=== PATIENT | female | born 1945 | race Caucasian/White ===

== ENCOUNTER 2018-03-06 08:48 | Inpatient (IN) | payer MEDICARE ==
[2018-03-06] MEDS ORDERED: PATIENT OWN MED: PROAIR HFA INH PRN (14:10)
[2018-03-06] MEDS ORDERED: TYVASO INH SCH (14:15)
[2018-03-06] MEDS: HYDROCODONE/APAP 5/325MG TABLET PO PRN (16:05)
[2018-03-06] MEDS: IPRATROPIUM/ALBUTEROL (0.5MG/3MG) NEB INH SCH ×3 (16:34→23:48)
[2018-03-06] MEDS: BREO (FLUTICASONE/VILANTEROL) 100MCG/25MCG INHALER INH SCH (16:35)
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
[2018-03-06] MEDS: TYVASO INH SCH ×2 (19:56→23:00)
[2018-03-06] MEDS: ADEMPAS 2.5 MG PO SCH (20:39)
[2018-03-07] MEDS: IPRATROPIUM/ALBUTEROL (0.5MG/3MG) NEB INH SCH ×6 (04:04→23:51)
[2018-03-07] MEDS: ADEMPAS 2.5 MG PO SCH ×3 (05:59→20:14)
[2018-03-07] MEDS: PANTOPRAZOLE SODIUM 40 MG TABLET PO SCH ×2 (06:00→06:08)
[2018-03-07] MEDS: HYDROCODONE/APAP 5/325MG TABLET PO PRN ×2 (07:57→20:17)
[2018-03-07] MEDS: FERROUS SULFATE 325 MG TAB PO SCH (08:37)
[2018-03-07] MEDS: BREO (FLUTICASONE/VILANTEROL) 100MCG/25MCG INHALER INH SCH (09:48)
[2018-03-07] MEDS: LORATADINE 10 MG TABLET PO SCH (10:04)
[2018-03-07] MEDS: TYVASO INH SCH ×4 (10:04→22:00)
[2018-03-07] MEDS: POTASSIUM CHLORIDE 20 MEQ TABLET PO SCH (10:05)
[2018-03-07] MEDS: DIGOXIN 125 MCG TABLET PO SCH (10:06)
[2018-03-07] MEDS: MAGNESIUM OXIDE 400 MG TABLET PO SCH (10:07)
[2018-03-07] MEDS: FUROSEMIDE 20 MG TABLET PO SCH (10:07)
[2018-03-07] MEDS: LISINOPRIL 20 MG TABLET PO SCH (10:08)
[2018-03-07] MEDS: SIMVASTATIN 10MG TABLET PO SCH (10:10)
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
[2018-03-07] MEDS ORDERED: CALCIUM CARBONATE 500 MG TAB.CHEW PO PRN (10:23)
--- NOTE | 2018-03-07 12:02 | Swing Bed Certification/Recert ---
Initial Certification Due: 03/06/18 14 Day Re-Cert Due: 03/20/18 44 Day Re-Cert Due: 04/19/18 74 Day Re-Cert Due: 05/19/18 CERTIFICATION 3 CERTIFICATION OF PATIENT ADMISSION Required at time of admission. Due: 03/06/18 I certify that SNF services are required to be given on an inpatient basis because of the above named patient's need for care home care on a continuing basis for the condition(s) for which he/she was receiving inpatient hospital services prior to his/her transfer to the SNF. The patient's current needs for skilled care includes: [physical deconditioning due to acute on chronic respiratory failure] Sushila Mathis, N.P. 03/07/18
--- NOTE | 2018-03-07 12:12 | History & Physical ---
History of Present Illness - Date Date of Service for History & Physical: 03/07/18 - History of Present Illness Admitting Diagnosis: hypoxia History of Present Illness: 72 year old female presents with physical deconditioning after being hospitalized for acute on chronic respiratory failure due to COPD. Patient has a history of PE, COPD, HTN, chronic anemia, arthritis, pulmonary hypertension, chronic back pain, and hyperkalemia. The patient was admitted to [facility] for pneumonia and discharged to [facility] 03/06/18. Patient has had several ER visits and admissions for weakness and exertional dyspnea since 02/26/18. Her most recent admission included treatment for pneumonia, with oral steroids, and a pulmonary consult. She did not receive antibiotics at that time per pulmonary, as she had recently completed a course at home and was afebrile. Patient also had CAP in December. [place], uses 3L oxygen via [place] at home, and uses a motorized wheelchair. She also has a history of chronic back pain with radiography done at [facility], which showed degenerative changes. She takes Holbrook and Flexeril at home for pain control. 03/07/18: Patient sitting in chair, in no respiratory distress, appears comfortable. Patient participating in PT/OT, continues on 3L oxygen via NC, as this is her home dose. Patient reports that her pain is being well controlled at this time, denies any shortness of breath, cough, or dyspnea. PCP: Radha Chaudhry: Gio General - Cognitive Patterns Speech: Normal Orientation: Oriented x3, Person, Place, Time - Communication Preferred Language?: Estonian Referral Nurse Required: No Level of Education: [employer] Preferred Method of Learning: Seeing, Doing, Reading Comprehension Ability: No Impairment Able to Read: Yes Able to Write: Yes Select best description of speech pattern: Clear Speech Ability to express ideas and wants: Understood Understanding verbal content: Understands - Psychosocial Well-Being Usual Living Arrangement: Alone - Dental Status Unable to examine: No Broken or loosely fitting full or partial dentures: No No natural teeth or tooth fragment(s) (edentulous): No Abnormal mouth tissue (ulcers, masses, oral lesions, etc.): No Obvious or likely cavity or broken natural teeth: No Inflamed or bleeding gums or loose natural teeth: No Mouth/facial pain, discomfort or difficulty chewing: No - Nutrition Screening Poor oral intake > 1 week: No Unplanned weight loss in specified time frame: No Nutrition Support via tube feedings or parenteral nutrition: No Pressure Ulcer: No Significantly underweight define as BMI <18.5 kg/m2: No Albumin <2.5mg/dL: No Persistent nausea/vomiting/diarrhea >3 days: No Difficulty chewing/swallowing/mouth sores: No Admitting Diagnosis: Yes Nutrition Risk Score: Low Risk Review of Systems Constitutional: Reports: Weakness. Denies: Chills, Fever Respiratory: Reports: Dyspnea. Denies: Cough, Stridor, Wheezes Cardiovascular: Denies: Chest pain Gastrointestinal: Denies: Abdominal pain, Nausea, Vomiting Musculoskeletal: Reports: Back pain Neurological: Reports: Abnormal gait, Weakness Past Medical History - SOCIAL HISTORY Smoking Status: Never smoker Alcohol Use: None - RESPIRATORY Hx Bronchitis: Yes Hx COPD: Yes Hx Dyspnea: Yes Hx Pulmonary Embolism: Yes - NEURO Comment:: States has enlarged heart. - ENDOCRINE Hx Diabetes: No Hx Thyroid Disease: No Comment:: States is not a diabetic - MUSCULOSKELETAL Hx Arthritis: Yes Hx Back Injury: Yes Hx Fibromyalgia: No Hx Gout: No Hx Musculoskeletal Disease: No - PSYCH Hx Psych Problems: No Hx Anxiety: No Hx Behavior Problems: No Hx Depression: No Hx Emotional Abuse: No Hx Sexual Abuse: No Hx Suicide Attempt: No Major Depressive Episode: No Feelings of Hopelessness: No - HEMATOLOGY/ONCOLOGY Hx Hematology/Oncology Disorders: No Hx Anemia: Yes Family Medical History Any Significant Family History?: Yes Hx Cancer: Mother H&P Meds/Allergies - Allergies Allergies: Allergies Allergy/AdvReac Type Severity Reaction Status Date / Time alcohol Allergy DIFFICULTY Verified 03/06/18 13:17 BREATHING amoxicillin Allergy DIFFICULTY Verified 03/06/18 13:17 BREATHING lactose Allergy ABDOMINAL Verified 03/06/18 13:17 PAIN morphine Allergy ALTERED Verified 03/06/18 13:17 MENTAL STATUS Penicillins Allergy SHORTNESS Verified 03/06/18 13:17 OF BREATH prednisone Allergy DIZZINESS Verified 03/06/18 13:17 aspirin AdvReac NAUSEA AND Verified 03/06/18 13:17 VOMITING codeine AdvReac NAUSEA AND Verified 03/06/18 13:17 VOMITING - Active Medications Active Medications: Current Medications Hydrocodone Bitart/Acetaminophen (Holbrook 5mg/325mg) 1 each PO Q6H PRN PRN Reason: Pain - General Last Admin: 03/07/18 07:57 Dose: 1 each Albuterol/Ipratropium (Duoneb) 3 ml INH Q4H [facility] Last Admin: 03/07/18 09:47 Dose: 3 ml Calcium Carbonate/Glycine (Tums) 500 mg PO Q4H PRN PRN Reason: HEARTBURN Cyclobenzaprine HCl (Flexeril) 5 mg PO TID PRN PRN Reason: MUSCLE SPASM/PAIN Digoxin (Lanoxin) 125 mcg PO DAILY [facility] Last Admin: 03/07/18 10:06 Dose: 125 mcg Ferrous Sulfate (Iron) 325 mg PO DAILYWM [facility] Last Admin: 03/07/18 08:37 Dose: 325 mg Furosemide (Lasix) 20 mg PO DAILY [facility] Last Admin: 03/07/18 10:07 Dose: 20 mg Lisinopril (Zestril) 20 mg PO DAILY [facility] Last Admin: 03/07/18 10:08 Dose: 20 mg Loratadine (Claritin) 10 mg PO DAILY [facility] Last Admin: 03/07/18 10:04 Dose: 10 mg Magnesium Oxide (Mag Ox) 200 mg PO DAILY [facility] Last Admin: 03/07/18 10:07 Dose: 200 mg Patient Own Med: (Adempas 2.5 Mg) 1 each PO 0500,1300,2000 [facility] Last Admin: 03/07/18 05:59 Dose: 1 each Patient Own Med: (Proair Hfa) 2 each INH Q4H PRN PRN Reason: SHORTNESS OF BREATH Patient Own Med: (Tyvaso 1.74 Mg) 1 each INH 0900,1400,1900,2300 [facility] Last Admin: 03/07/18 10:04 Dose: 1 each Potassium Chloride (Klor-Con) 10 meq PO DAILY [facility] Last Admin: 03/07/18 10:05 Dose: 10 meq Simvastatin (Zocor) 10 mg PO DAILY [facility] Last Admin: 03/07/18 10:10 Dose: 10 mg Physical Exam - Vital Signs Vital Signs: Vital Signs - Last 24 Hrs Temp Pulse Pulse Resp BP Pulse Ox 03/07/18 09:59 88 24 90 L 03/07/18 09:57 84 24 90 L 03/07/18 04:19 82 20 92 L 03/07/18 04:05 82 18 94 L 03/06/18 23:48 79 18 94 L 04/19/18 20:00 97.8 F 73 18 146/61 95 03/06/18 19:57 80 18 94 L 03/06/18 17:18 74 18 94 L 03/06/18 12:45 98.6 F 79 18 112/40 98 - General General Appearance: Alert, Oriented x3, No acute distress - Head Head exam: Atraumatic, Normocephalic - Neck Neck exam: Normal inspection, Full ROM - Respiratory Respiratory exam: Decreased breath sounds (bases bilaterally) - Cardiovascular Cardiovascular Exam: Regular rate, Normal rhythm, Normal heart sounds - GI/Abdominal GI/Abdominal exam: Soft - Rectal Rectal exam: Deferred - exam: Deferred - Extremities Extremities exam: Normal inspection - Neurological Neurological exam: Abnormal gait, Alert, Oriented X3 - Psychiatric Psychiatric exam: Normal affect, Normal mood Discharge Potential - Discharge Needs Community Services Used Prior to Admission: Oxygen Therapy Patient Discharge Plan Description: Return Home Community Services Needed at Discharge: Oxygen Therapy Discharge Needs Comment: Oxygen provider states [facility] in [place], [place]. Plan - Swing Bed Certification Initial Certification Due: 03/06/18 14 Day Re-Cert Due: 03/20/18 44 Day Re-Cert Due: 04/19/18 74 Day Re-Cert Due: 05/19/18 - Detailed Diagnosis and Plan (1) Generalized weakness Current Visit: Yes Status: Acute Base Code: R53.1 - WEAKNESS Comment: 03/07: acute on chronic. Pt has physical deconditioning due to frequent hospitalizations recently and COPD exacerbations. - PT/OT ordered (2) COPD (chronic obstructive pulmonary disease) Current Visit: Yes Status: Acute Base Code: J44.9 - CHRONIC OBSTRUCTIVE PULMONARY DISEASE, UNSPECIFIED Comment: 03/07/18: Acute on chronic COPD exacerbation. Patient saw pulmonology at [facility], continued steroid use and albuterol treatments. - Continue home oxygen use of 3L mata NC - Encourage continued use of IS (3) Hyperkalemia Current Visit: Yes Status: Acute Base Code: E87.5 - HYPERKALEMIA Comment: 03/07/18: Last potassium from [facility] noted to be 5.0. Patient is receiving oral K+ due to daily lasix. -Will recheck BMP today and continue to monitor (4) Full code status Current Visit: Yes Status: Acute Base Code: Z78.9 - OTHER SPECIFIED HEALTH STATUS Comment: 03/07/18: Patient is full code status.
--- NOTE | 2018-03-07 14:21 | Physical Therapy Tx Note ---
Physical Therapy Tx Note - Treatment Note Tolerated: Good Total Time Spent With Patient: 15 Physical Therapy Tx Note: Detail (The patient was laying in bed upon arrival. She was able to transfer from supine to sit independently. She was able to transfer from sit to stand independently. She was then able to ambulate from the far bedside to her doorway before she required a rest break. She used a 2WW and 4L of O2, and was able to maintain O2 Saturation at 91% after ambulation. She was then able to ambulate from the doorway to the doorway of room 24, and was able to maintain 90% after this bout of ambulation. The patient ambulated a total of 25 feet, but requested to discontinue therapy due to increased feelings of fatigue. She was returned to her room via wheelchair. She was able to transfer from the wheelchair, to standing, and back to supine in bed, this was done independently. The patient was then able to roll to the opposite side of the bed and transfer to her chair for her scheduled breathing treatment. She was left sitting in her chair with call light in reach.) Physical Therapy Problem List: Detail (1. Generalized LE weakness 2. Impaired activity tolerance 3. History of falls 4. Difficulty walking 5. Low back and LE pain.) Physical Therapy Goals: 1. Pt will exhibit improved strength in proximal LE muscle groups to 4/5 for greater stability with ambulation. 2. Pt will tolerate ambulating household distances with four wheeled walker without undue fatigue or pain. 3. Pt will tolerate 30 minutes of low intensity therapeutic exercise/activity with two rest periods. 4. Complete formal balance assessment to determine safety recommendations. Prognosis: Good Physical Therapy Plan: Patient will be seen 1-2 times/day M- to address above goals; treatment will include therapeutic exercise/activity, gait/balance training, and safety with mobility.
[2018-03-07 16:00] LABS: CREATININE 1.1 mg/dL (0.5-0.9)
[2018-03-08] MEDS: IPRATROPIUM/ALBUTEROL (0.5MG/3MG) NEB INH SCH ×6 (03:47→23:33)
[2018-03-08] MEDS: ADEMPAS 2.5 MG PO SCH ×3 (05:24→20:19)
[2018-03-08] MEDS: BREO (FLUTICASONE/VILANTEROL) 100MCG/25MCG INHALER INH SCH (07:29)
[2018-03-08] MEDS: HYDROCODONE/APAP 5/325MG TABLET PO PRN ×3 (07:48→20:23)
[2018-03-08] MEDS: TYVASO INH SCH ×4 (09:06→23:38)
[2018-03-08] MEDS: FERROUS SULFATE 325 MG TAB PO SCH (09:06)
[2018-03-08] MEDS: LORATADINE 10 MG TABLET PO SCH (10:37)
[2018-03-08] MEDS: FUROSEMIDE 20 MG TABLET PO SCH (10:37)
[2018-03-08] MEDS: POTASSIUM CHLORIDE 20 MEQ TABLET PO SCH (10:37)
[2018-03-08] MEDS: SIMVASTATIN 10MG TABLET PO SCH (10:37)
[2018-03-08] MEDS: DIGOXIN 125 MCG TABLET PO SCH (10:38)
[2018-03-08] MEDS: MAGNESIUM OXIDE 400 MG TABLET PO SCH (10:38)
[2018-03-08] MEDS: LISINOPRIL 20 MG TABLET PO SCH (10:39)
[2018-03-08] MEDS: CYCLOBENZAPRINE 10MG TABLET PO PRN (10:39)
[2018-03-09] MEDS: IPRATROPIUM/ALBUTEROL (0.5MG/3MG) NEB INH SCH ×6 (04:01→23:25)
[2018-03-09] MEDS: HYDROCODONE/APAP 5/325MG TABLET PO PRN ×3 (04:09→17:18)
[2018-03-09] MEDS: ADEMPAS 2.5 MG PO SCH ×3 (05:43→20:56)
[2018-03-09] MEDS: FERROUS SULFATE 325 MG TAB PO SCH (07:52)
[2018-03-09] MEDS: BREO (FLUTICASONE/VILANTEROL) 100MCG/25MCG INHALER INH SCH (07:58)
[2018-03-09] MEDS: TYVASO INH SCH ×4 (08:52→23:30)
[2018-03-09] MEDS: POTASSIUM CHLORIDE 20 MEQ TABLET PO SCH (09:11)
[2018-03-09] MEDS: MAGNESIUM OXIDE 400 MG TABLET PO SCH (09:14)
[2018-03-09] MEDS: FUROSEMIDE 20 MG TABLET PO SCH (09:17)
[2018-03-09] MEDS: DIGOXIN 125 MCG TABLET PO SCH (09:17)
[2018-03-09] MEDS: SIMVASTATIN 10MG TABLET PO SCH (09:18)
[2018-03-09] MEDS: LORATADINE 10 MG TABLET PO SCH (09:18)
[2018-03-09] MEDS: LISINOPRIL 20 MG TABLET PO SCH (09:18)
[2018-03-09] MEDS: CYCLOBENZAPRINE 10MG TABLET PO PRN ×2 (09:18→15:58)
[2018-03-09] MEDS: LIDOCAINE 5% PATCH TOP SCH (17:19)
[2018-03-09] MEDS: REMOVE PATCH 1 EACH MISC TD SCH (21:42)
[2018-03-10] MEDS: IPRATROPIUM/ALBUTEROL (0.5MG/3MG) NEB INH SCH ×6 (03:58→23:34)
[2018-03-10] MEDS: HYDROCODONE/APAP 5/325MG TABLET PO PRN ×2 (04:15→16:16)
[2018-03-10] MEDS: CYCLOBENZAPRINE 10MG TABLET PO PRN ×2 (04:18→16:15)
[2018-03-10] MEDS: ADEMPAS 2.5 MG PO SCH ×3 (04:22→21:34)
[2018-03-10] MEDS: BREO (FLUTICASONE/VILANTEROL) 100MCG/25MCG INHALER INH SCH (07:50)
[2018-03-10] MEDS: FERROUS SULFATE 325 MG TAB PO SCH (08:00)
--- NOTE | 2018-03-10 08:06 | Occupational Therapy Tx Note ---
Occupational Therapy Tx Note - Treatment Note Tolerated: Good Total Time Spent With Patient: 35 (ADL) Occupational Therapy Treatment Note: Detail (S: Pt resting in bed, ready for shower. O: Pt using 3-4 liters of oxygen during treatment. Supine to sit and amb to closet to retrieve clothing with 4 wheeled walker Indly. Pt amb to bathroom and completed toileting Indly. Doffed shirt, pants, briefs and shoes Indly. Pt completed showering in sitting and standing using hand held shower and grab bar. She required short rest breaks for breathing. Pt dried self Indly. Pt donned bra, shirt, briefs, pants and shoes Indly. Pt amb to sink and completed grooming/hygiene Indly. Pt amb back to room and was seated in wheelchair Indly. A: Pt Ind with showering, dressing and grooming/hygiene in sitting and standing while using 3-4 liters of oxygen and short rest breaks for breathing recovery.) Occupational Therapy Problem List: Detail (1. Decreased Ind with showering. 2. Decreased Ind with functional mobility needed for safe and Ind ADLs. 3. Decreased endurance for functional tasks.) Occupational Therapy Goals: 1. Pt will be safe and Ind with showering in sitting. 2. Pt will be safe and Ind with functional mobility needed for ADLs and IADLs. 3. Pt will demonstrate improved endurance needed for safe and Ind ADLs/IADLs. Prognosis: Good Occupational Therapy Plan: OT 2-4 days per week to address self cares, endurance and functional mobility to allow safe and Ind return home.
[2018-03-10] MEDS: LORATADINE 10 MG TABLET PO SCH (09:05)
[2018-03-10] MEDS: FUROSEMIDE 20 MG TABLET PO SCH (09:05)
[2018-03-10] MEDS: DIGOXIN 125 MCG TABLET PO SCH (09:05)
[2018-03-10] MEDS: MAGNESIUM OXIDE 400 MG TABLET PO SCH (09:06)
[2018-03-10] MEDS: LIDOCAINE 5% PATCH TOP SCH (09:06)
[2018-03-10] MEDS: LISINOPRIL 20 MG TABLET PO SCH (09:06)
[2018-03-10] MEDS: SIMVASTATIN 10MG TABLET PO SCH (09:07)
[2018-03-10] MEDS: TYVASO INH SCH ×4 (09:12→23:52)
[2018-03-10] MEDS: ALBUTEROL SULFATE (0.083%) 2.5 MG/3 ML NEB INH PRN ×2 (10:17→14:15)
--- NOTE | 2018-03-10 13:46 | Physical Therapy Tx Note ---
Physical Therapy Tx Note - Treatment Note Tolerated: Good Total Time Spent With Patient: 30 Physical Therapy Tx Note: Detail (The patient was sitting on the edge of bed when PT arrived. The patient ambulated with her own 4 wheeled walker a distance of 54 feet x 2 with 4L of O2. O2 sat remained at 98. The patient demonstrated to PT how she would be able to go to bathroom with use of her walker in a seated position. The patient was independent with opening and closing door and safely positioning walker by toilet. The patient's HEP for UE and LE strengthening exercises was reviewed. The patient's balance using the Tinetti Assessment Tool was completed, however the patient refused to complete several activities including the nudging section and turning in a aniak. The patient rated as 19/ 28 which is the moderate risk for falling.) Physical Therapy Problem List: Detail (1. Generalized LE weakness 2. Impaired activity tolerance 3. History of falls 4. Difficulty walking 5. Low back and LE pain.) Physical Therapy Goals: 1. Pt will exhibit improved strength in proximal LE muscle groups to 4/5 for greater stability with ambulation. 2. Pt will tolerate ambulating household distances with four wheeled walker without undue fatigue or pain. 3. Pt will tolerate 30 minutes of low intensity therapeutic exercise/activity with two rest periods. 4. Complete formal balance assessment to determine safety recommendations. Physical Therapy Plan: Patient will be seen 1-2 times/day M-F to address above goals; treatment will include therapeutic exercise/activity, gait/balance training, and safety with mobility.
[2018-03-10] MEDS: REMOVE PATCH 1 EACH MISC TD SCH (21:52)
[2018-03-11] MEDS: IPRATROPIUM/ALBUTEROL (0.5MG/3MG) NEB INH SCH ×6 (03:46→23:53)
[2018-03-11] MEDS: HYDROCODONE/APAP 5/325MG TABLET PO PRN ×3 (04:20→19:39)
[2018-03-11] MEDS: ADEMPAS 2.5 MG PO SCH ×3 (04:20→20:24)
[2018-03-11] MEDS: CYCLOBENZAPRINE 10MG TABLET PO PRN ×3 (04:25→19:39)
[2018-03-11] MEDS: FERROUS SULFATE 325 MG TAB PO SCH (07:53)
[2018-03-11] MEDS: BREO (FLUTICASONE/VILANTEROL) 100MCG/25MCG INHALER INH SCH (08:11)
[2018-03-11] MEDS: TYVASO INH SCH ×4 (09:11→23:52)
[2018-03-11] MEDS: FUROSEMIDE 20 MG TABLET PO SCH (09:12)
[2018-03-11] MEDS: LORATADINE 10 MG TABLET PO SCH (09:12)
[2018-03-11] MEDS: DIGOXIN 125 MCG TABLET PO SCH (09:12)
[2018-03-11] MEDS: LISINOPRIL 20 MG TABLET PO SCH (09:13)
[2018-03-11] MEDS: MAGNESIUM OXIDE 400 MG TABLET PO SCH (09:13)
[2018-03-11] MEDS: SIMVASTATIN 10MG TABLET PO SCH (09:13)
[2018-03-11] MEDS: LIDOCAINE 5% PATCH TOP SCH (09:13)
[2018-03-11] MEDS ORDERED: LORAZEPAM 0.5 MG TABLET PO PRN (09:37)
--- NOTE | 2018-03-11 10:49 | Physical Therapy Tx Note ---
Physical Therapy Tx Note - Treatment Note Tolerated: Fair Total Time Spent With Patient: 15 Physical Therapy Tx Note: Detail (The patient was sitting on the edge of bed when PT arrived. The patient ambulated with wheeled walker and 4L of O2 a distance of 54 feet x 2. The patient was asked what other PT goals she had and stated she felt all her goals had been met. The patient was issued foam extensions to place on silverware to assist with holding them while eating. PT treatment was limited due to fatigue.) Physical Therapy Problem List: Detail (1. Generalized LE weakness 2. Impaired activity tolerance 3. History of falls 4. Difficulty walking 5. Low back and LE pain.) Physical Therapy Goals: 1. Pt will exhibit improved strength in proximal LE muscle groups to 4/5 for greater stability with ambulation. 2. Pt will tolerate ambulating household distances with four wheeled walker without undue fatigue or pain. 3. Pt will tolerate 30 minutes of low intensity therapeutic exercise/activity with two rest periods. 4. Complete formal balance assessment to determine safety recommendations. Physical Therapy Plan: Patient will be seen 1-2 times/day M- to address above goals; treatment will include therapeutic exercise/activity, gait/balance training, and safety with mobility.
--- NOTE | 2018-03-11 13:31 | Physical Therapy Tx Note ---
Physical Therapy Tx Note - Treatment Note Tolerated: Fair Total Time Spent With Patient: 15 Physical Therapy Tx Note: Detail (The patient was in bed when PT arrived. The patient ambulated with 4 wheeled walker 54 feet x 1 with supervision for safety and 4 L of O2. O2 sats's remained in the 90's. The patient had complaints of lower back pain while ambulating and wheeled herself back to her room seated in wheeled walker. The patient returned to bed, call light within reach.) Physical Therapy Problem List: Detail (1. Generalized LE weakness 2. Impaired activity tolerance 3. History of falls 4. Difficulty walking 5. Low back and LE pain.) Physical Therapy Goals: 1. Pt will exhibit improved strength in proximal LE muscle groups to 4/5 for greater stability with ambulation. 2. Pt will tolerate ambulating household distances with four wheeled walker without undue fatigue or pain. 3. Pt will tolerate 30 minutes of low intensity therapeutic exercise/activity with two rest periods. 4. Complete formal balance assessment to determine safety recommendations. Physical Therapy Plan: Patient will be seen 1-2 times/day M- to address above goals; treatment will include therapeutic exercise/activity, gait/balance training, and safety with mobility.
--- NOTE | 2018-03-11 16:38 | Discharge Summary ---
Providers Discharge Summary Date: 03/11/18 Date of admission: 03/06/18 12:58 Expected Date of Discharge: 03/12/18 Attending physician: JEFFREY GAY Primary care physician: CONNIE DELACRUZ M.D. Physical Exam - Vital Signs Vital Signs: Vital Signs - Last 24 Hrs Temp Pulse Pulse Resp BP Pulse Ox 03/11/18 16:12 76 18 03/11/18 12:03 78 18 99 03/11/18 08:17 76 16 03/11/18 08:00 98.1 F 80 18 119/45 95 03/11/18 03:46 77 16 96 03/10/18 23:35 73 16 96 03/10/18 20:00 97.7 F 80 20 124/61 94 L 03/10/18 19:46 98 H 18 76 L - General General Appearance: Alert, Oriented x3, No acute distress - Head Head exam: Atraumatic, Normocephalic - Neck Neck exam: Normal inspection, Full ROM - Respiratory Respiratory exam: Decreased breath sounds (bases bilaterally) - Cardiovascular Cardiovascular Exam: Regular rate, Normal rhythm, Normal heart sounds - GI/Abdominal GI/Abdominal exam: Soft - Rectal Rectal exam: Deferred - exam: Deferred - Extremities Extremities exam: Normal inspection - Neurological Neurological exam: Abnormal gait, Alert, Oriented X3 - Psychiatric Psychiatric exam: Normal affect, Normal mood Hospitalization - Hospitalization Admission Diagnosis: deconditioning due to copd, hypoxia, pneumonia - Problem List (1) Generalized weakness Status: Acute Base Code: R53.1 - WEAKNESS Comment: 03/11/18: significantly improved. she is ambulating with walker with minimal assistance. - plan to discharge home today -she will continue PT/OT and nursing with home care set up by (2) COPD (chronic obstructive pulmonary disease) Status: Acute Base Code: J44.9 - CHRONIC OBSTRUCTIVE PULMONARY DISEASE, UNSPECIFIED Comment: 03/11/18: acute exacerbation resolved. She is doing very well with continuous 3L via NC which is what she uses at home. - Continue home oxygen use of 3L mata NC -resume home medications -follow up with pcp and cook taco as scheduled (3) Full code status Status: Acute Base Code: Z78.9 - OTHER SPECIFIED HEALTH STATUS Comment: 03/11: Patient is full code status. (4) Hyperkalemia Status: Acute Base Code: E87.5 - HYPERKALEMIA Comment: 03/11/18: last potassium 5.3. continue to hold oral potassium supplement and continue daily lasix -home health care to redraw labs q72H and follow up with pcp as scheduled - Hospitalization Course Disposition: Home, Self-Care Hospital Course: 72 year old female presents with physical deconditioning after being hospitalized for acute on chronic respiratory failure due to COPD. Patient has a history of PE, COPD, HTN, chronic anemia, arthritis, pulmonary hypertension, chronic back pain, and hyperkalemia. The patient was admitted to [facility] for pneumonia and discharged to [facility] 03/06/18. Patient has had several ER visits and admissions for weakness and exertional dyspnea since 02/26/18. Her most recent admission included treatment for pneumonia, with oral steroids, and a pulmonary consult. She did not receive antibiotics at that time per pulmonary, as she had recently completed a course at home and was afebrile. Patient also had CAP in December. Patient lives in a fpc, uses 3L oxygen via NC at home, and uses a motorized wheelchair. She also has a history of chronic back pain with radiography done at [facility], which showed degenerative changes. She takes [place] and Flexeril at home for pain control. 03/07/18: Patient sitting in chair, in no respiratory distress, appears comfortable. Patient participating in PT/OT, continues on 3L oxygen via NC, as this is her home dose. Patient reports that her pain is being well controlled at this time, denies any shortness of breath, cough, or dyspnea. 03/11/18- Patient states she is doing well. Has been up ambulating with walker. Says her breathing has improved and she is on her baseline o2. PCP: Radha Romerom: Gio Abnormal Labs: Abnormal Lab Results 03/07/18 Range/Units 15:39 Sodium 135 L (136-145) mmol/L Potassium 5.3 H (3.4-4.5) mmol/L Chloride 97 L (98-107) mmol/L Carbon Dioxide 30.0 H (22-29) mmol/L BUN 42 H (8-23) mg/dL Creatinine 1.1 H (0.5-0.9) mg/dL Random Glucose 143 H (74-109) mg/dL Condition at Discharge: (2) Stable Discharge Medications - Discharge Medications Prescriptions: Cyclobenzaprine HCl [Flexeril] 5 mg PO DAILY PRN #30 tab PRN Reason: MUSCLE SPASM/PAIN Hydrocodone/APAP 5/325Mg [[place] 5Mg/325Mg] 1 each PO DAILY PRN #30 tab PRN Reason: Pain - General Lidocaine Patch [Lidoderm] 1 each TOP DAILY PRN #30 patch PRN Reason: Pain - Moderate (5-7) Home Medications: Ambulatory Orders Albuterol Sulfate 0.083% [Neb] 2.5 mg INH RESP.Q4H PRN nebulization solution [Last Taken Unknown] Calcium Carbonate [Tums] 500 mg PO Q4H PRN tab.chew 03/12/18 [Last Taken Unknown] Cyclobenzaprine HCl [Flexeril] 5 mg PO DAILY PRN #30 tab 03/12/18 [Last Taken Unknown] Digoxin [Lanoxin] 125 mcg PO DAILY tablet 03/12/18 [Last Taken Unknown] Ferrous Sulfate [Iron] 325 mg PO DAILYWM tablet 03/12/18 [Last Taken Unknown] Fluticasone/Vilanterol 100/25 [Breo Ellipta 100-25 Mcg INH] 1 puff INH RESP.DAILY inhaler 03/12/18 [Last Taken Unknown] Furosemide [Lasix] 20 mg PO DAILY tablet 03/12/18 [Last Taken Unknown] Hydrocodone/APAP 5/325Mg [[place] 5Mg/325Mg] 1 each PO DAILY PRN #30 tab 03/12/18 [Last Taken Unknown] Lidocaine Patch [Lidoderm] 1 each TOP DAILY PRN #30 patch 03/12/18 [Last Taken Unknown] Loratadine [Claritin] 10 mg PO DAILY tablet 03/12/18 [Last Taken Unknown] Magnesium Oxide [Mag Ox] 200 mg PO DAILY tab 03/12/18 [Last Taken Unknown] Simvastatin [Zocor] 10 mg PO DAILY tab 03/12/18 [Last Taken Unknown] Discharge Plan - Discharge Instructions Instructions: COPD (Chronic Obstructive Pulmonary Disease) (DC), Hyperkalemia ( DC), Weakness (DC) Additional Instructions: Dr. Powers March 25 at 8:15 at [facility] Dr. Thomas with [facility] is scheduled to see you at home March 26. The office will call that morning to inform you of time. May continue to use cyclobenzaprin 5mg daily as needed for muscle relaxer May use 1 lidoderm patch daily as needed for pain. Patch can stay on for 12H at the maximum and should wait 12H before the next patch is applied. May use the norco 1 tab by mouth daily as needed for severe pain. Continue home medications previously prescribed. Please hold your potassium supplement until you have your appointment with primary care Please call with any questions or concerns Quality Measures - Quality Measures Quality Measures: Advance Directives, Documentation of Current Medications in Medical Record, Elder Maltreatment Screen and Follow-Up Plan, Screening for High Blood Pressure and F/U Documented - Current Medications Quality Measure: Measure #130: Documentation of Current Medications Documentation of Current Medications: <Current Medications Documented/Reviewed> [G8427] - Blood Pressure Screening Quality Measure: Screening for High Blood Pressure and Follow-Up Documented Does Patient Have Any of the Following: Active Dx of HTN Blood Pressure Classification: Pre-Hypertensive BP Reading Systolic Measurement: 133 Diastolic Measurement: 55 Screening for High Blood Pressure: Patient Exclusion, Hx of HTN [G9744] - Advance Directives Quality Measure: Measure #47: Care Plan Advance Directives Established: Yes Advance Directives Information Provided To Patient: Yes Advance Directives on File: No Living Will: Yes Power of Compensation Analyst: Yes Advance Care Planning: <Care Plan/Decision Maker Documented; Discussed & Documented> [1123F] - Elder Abuse Suspicion Index Screening: Elder Abuse Suspicion Index Screening Rely on people for bathing, dressing, shopping, banking, etc: No Prevented from getting food, clothes, medication, etc: No Made to feel shamed or threatened by someone: No Forced to sign papers or use money against will: No Feel afraid, touched in ways not wanted or hurt physically: No Poor eye contact, withdrawn, malnourished, cuts or bruises: No Screening Result: Negative result EASI Reference Information: Demetris PEREZ, Michelle C, Raegan D, Ayesha Matta.Development and validation of a tool to assist physicians identification of elder abuse: The Elder Abuse Suspicion Index (EASI ). Journal of Elder Abuse and Neglect, 2008; 20 (3): 276-300. - Elder Maltreatment Screen Quality Measures: Elder Maltreatment Screen and Follow-Up Plan Elder Maltreatment Screen: <Negative, No Follow-Up Plan Required> [G3457]
[2018-03-11] MEDS: REMOVE PATCH 1 EACH MISC TD SCH (21:59)
[2018-03-12] MEDS: IPRATROPIUM/ALBUTEROL (0.5MG/3MG) NEB INH SCH ×4 (04:00→15:55)
[2018-03-12] MEDS: HYDROCODONE/APAP 5/325MG TABLET PO PRN ×2 (04:00→14:16)
[2018-03-12] MEDS: CYCLOBENZAPRINE 10MG TABLET PO PRN (04:01)
[2018-03-12] MEDS: ADEMPAS 2.5 MG PO SCH ×2 (06:05→12:47)
[2018-03-12] MEDS: BREO (FLUTICASONE/VILANTEROL) 100MCG/25MCG INHALER INH SCH (08:27)
[2018-03-12] MEDS: FERROUS SULFATE 325 MG TAB PO SCH (08:29)
[2018-03-12] MEDS: TYVASO INH SCH ×2 (08:31→14:18)
[2018-03-12] MEDS: LORATADINE 10 MG TABLET PO SCH (09:35)
[2018-03-12] MEDS: LISINOPRIL 20 MG TABLET PO SCH (09:35)
[2018-03-12] MEDS: LIDOCAINE 5% PATCH TOP SCH (09:35)
[2018-03-12] MEDS: MAGNESIUM OXIDE 400 MG TABLET PO SCH (09:36)
[2018-03-12] MEDS: FUROSEMIDE 20 MG TABLET PO SCH (09:36)
[2018-03-12] MEDS: SIMVASTATIN 10MG TABLET PO SCH (09:48)
[2018-03-12] MEDS: DIGOXIN 125 MCG TABLET PO SCH ×2 (11:41→13:41)
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
== END 2018-03-12 17:55 | disposition home or self-care (01) | DRG 206 ==
LOC: MEDSURG 12:58
PROVIDERS: ADMIT Internal Medicine; ATTEND Internal Medicine
DX: R09.02 Hypoxemia (principal); J44.9 Chronic obstructive pulmonary disease, unspecified; E87.5 Hyperkalemia; I10 Essential (primary) hypertension; D53.9 Nutritional anemia, unspecified; Z86.711 Personal history of pulmonary embolism
CPT/HCPCS: 80048; 94640; 94760; 94761; 97110; 97530; 97535; 99306; 99316; J7613